=== PATIENT | female | born 1945 | race Hispanic/Latino ===

== ENCOUNTER → 2017-09-07 | Outpatient (CLI) | payer MEDICARE | END | disposition home or self-care (01) | LOC: OIH 15:37 | PROVIDERS: ATTEND Internal Medicine | DX: M19.012 Primary osteoarthritis, left shoulder (principal); M24.812 Other specific joint derangements of left shoulder, not elsewhere classified; R07.81 Pleurodynia | CPT/HCPCS: 71100; 73030 ==

== ENCOUNTER → 2017-09-19 | Outpatient (CLI) | payer MEDICARE | END | disposition home or self-care (01) | LOC: OIH 10:26 | PROVIDERS: ATTEND Internal Medicine | DX: J45.909 Unspecified asthma, uncomplicated (principal); M47.894 Other spondylosis, thoracic region; M41.84 Other forms of scoliosis, thoracic region | CPT/HCPCS: 71046 ==

== ENCOUNTER → 2018-03-10 | Outpatient (CLI) | payer MEDICARE | END | disposition home or self-care (01) | LOC: OIH 15:25 | PROVIDERS: ATTEND Internal Medicine | DX: M19.041 Primary osteoarthritis, right hand (principal); M19.031 Primary osteoarthritis, right wrist | CPT/HCPCS: 73090; 73100; 73130 ==

== ENCOUNTER → 2018-07-21 | Outpatient (CLI) | payer MEDICARE | END | disposition home or self-care (01) | LOC: OIH 15:45 | PROVIDERS: ATTEND Internal Medicine | DX: M75.101 Unspecified rotator cuff tear or rupture of right shoulder, not specified as traumatic (principal); M19.011 Primary osteoarthritis, right shoulder; R29.898 Other symptoms and signs involving the musculoskeletal system | CPT/HCPCS: 73030 ==

== ENCOUNTER → 2019-02-27 | Outpatient (CLI) | payer MEDICARE | END | disposition home or self-care (01) | LOC: OIH 14:52 | PROVIDERS: ATTEND Internal Medicine | DX: R07.89 Other chest pain (principal); W19.XXXA Unspecified fall, initial encounter; Y93.89 Activity, other specified; Y92.89 Other specified places as the place of occurrence of the external cause; Y99.8 Other external cause status | CPT/HCPCS: 71046; 71100 ==

== ENCOUNTER → 2019-03-08 | Outpatient (CLI) | payer MEDICARE | END | disposition home or self-care (01) | LOC: RAH 07:47 | PROVIDERS: ATTEND Internal Medicine | DX: K76.0 Fatty (change of) liver, not elsewhere classified (principal); K80.20 Calculus of gallbladder without cholecystitis without obstruction | CPT/HCPCS: 76700 ==

== ENCOUNTER → 2019-07-11 | Outpatient (CLI) | payer MEDICARE | END | disposition home or self-care (01) | LOC: OIH 10:00 | PROVIDERS: ATTEND Internal Medicine | DX: S09.90XA Unspecified injury of head, initial encounter (principal); R07.81 Pleurodynia; X58.XXXA Exposure to other specified factors, initial encounter; Y93.89 Activity, other specified; Y92.89 Other specified places as the place of occurrence of the external cause; Y99.8 Other external cause status | CPT/HCPCS: 70260; 71100 ==

== ENCOUNTER → 2019-08-27 | Outpatient (CLI) | payer MEDICARE | END | disposition home or self-care (01) | LOC: OIH 10:02 | PROVIDERS: ATTEND Internal Medicine | DX: M47.814 Spondylosis without myelopathy or radiculopathy, thoracic region (principal); M25.78 Osteophyte, vertebrae | CPT/HCPCS: 71046; 72070 ==

== ENCOUNTER → 2023-11-30 | Outpatient (CLI) | payer MEDICARE | END | disposition home or self-care (01) | LOC: RAH 15:03 | PROVIDERS: ATTEND Physical Medicine & Rehabilitation | DX: M51.27 Other intervertebral disc displacement, lumbosacral region (principal); M46.07 Spinal enthesopathy, lumbosacral region; M48.07 Spinal stenosis, lumbosacral region; M51.36 Other intervertebral disc degeneration, lumbar region | CPT/HCPCS: 72148 ==

== ENCOUNTER → 2024-08-16 | Outpatient (CLI) | payer MEDICARE ==
--- NOTE | 2024-08-16 14:35 | HMCIMG ---
KNEE 2VW BILATERAL REASON: BILATERAL KNEE PAIN. COMPARISON: None TECHNIQUE: 3 images of bilateral knees were obtained with weightbearing. FINDINGS: Mild degenerative changes are seen with joint space narrowing. There is no acute displaced fracture or dislocation. IMPRESSION: 1 findings as described above.
--- NOTE | 2024-08-16 14:35 | HMCIMG ---
THORACIC SPINE 2VWS HISTORY: Radiculopathy COMPARISON: None FINDINGS: 3 images of thoracic spine were obtained. There is S-shaped scoliosis. There is spondylosis. There is straightening of normal lordotic curvature which may be related to muscle spasm or positioning. No loss of vertebral height is seen. No fracture or dislocation is seen. Degenerative changes are seen. IMPRESSION: 1. No fracture is seen. DJD with scoliosis and spondylosis.
--- NOTE | 2024-08-16 14:35 | HMCIMG ---
LUMBAR SPINE 2-3VWS HISTORY: Lumbar radiculopathy COMPARISON: None FINDINGS: 3 images of lumbar spine were obtained. There are degenerative changes with lumbar spine spondylosis. There is levoscoliosis. Disc space narrowing are seen throughout the lumbar spine. There is straightening of normal lordotic curvature which may be related to muscle spasm or positioning. No loss of vertebral height is seen. No fracture or dislocation is seen. Degenerative changes are seen. IMPRESSION: 1. No fracture is seen. DJD.
--- NOTE | 2024-08-16 14:36 | HMCIMG ---
CERV SPINE 2-3VWS HISTORY: Cervical radiculopathy COMPARISON: None FINDINGS: 4 images of cervical spine were obtained. There is reversal of normal lordotic curvature which may be related to muscle spasm or positioning. No loss of vertebral height is seen. No fracture or dislocation is seen. Degenerative changes are seen. Disc space narrowings are seen at C4-5, C5-6 and C6-7 levels. IMPRESSION: 1. No fracture is seen. DJD.
== END | disposition home or self-care (01) ==
LOC: RAH 10:24
PROVIDERS: ATTEND Internal Medicine
DX: M47.22 Other spondylosis with radiculopathy, cervical region (principal); M47.24 Other spondylosis with radiculopathy, thoracic region; M47.26 Other spondylosis with radiculopathy, lumbar region; M17.0 Bilateral primary osteoarthritis of knee; M41.86 Other forms of scoliosis, lumbar region; M48.02 Spinal stenosis, cervical region; M41.84 Other forms of scoliosis, thoracic region; M48.061 Spinal stenosis, lumbar region without neurogenic claudication; M25.569 Pain in unspecified knee
CPT/HCPCS: 72040; 72070; 72100